=== PATIENT | female | born 1990 | race Two or more races ===

== ENCOUNTER 2016-12-28 09:49 | Emergency (ER) | payer MEDICAID ==
[~2016-12-28] VITALS: Ht 177.8 cm; Wt 117.9 kg
[2016-12-28 11:33] VITALS: BP 112/62
== END 2016-12-28 11:49 | disposition home or self-care (01) ==
LOC: ER 09:49
DX: S16.1XXA Strain of muscle, fascia and tendon at neck level, initial encounter (principal); J32.1 Chronic frontal sinusitis; F17.210 Nicotine dependence, cigarettes, uncomplicated; J45.909 Unspecified asthma, uncomplicated; Z88.2 Allergy status to sulfonamides; X58.XXXA Exposure to other specified factors, initial encounter; Y93.89 Activity, other specified; Y99.8 Other external cause status; Y92.89 Other specified places as the place of occurrence of the external cause

== ENCOUNTER 2025-04-22 06:20 | Inpatient (IN) | payer MEDICAID ==
[2025-04-21 10:31] LABS: Hematocrit 39.5 % (36.0-46.0); Hemoglobin 13.1 g/dL (12.2-16.2); Mean Corpuscular Hemoglobin 28.1 pg (28.0-32.0); Mean Corpuscular Volume 84.8 fL (80.0-100.0); Nucleated Red Blood Cells % 0.0 %
[2025-04-21 10:48] LABS: Urine Protein, UAD Negative (Negative)
[2025-04-21 10:49] LABS: INR 0.97 (0.9-1.15); Partial Thromboplastin Time 26.3 SEC (24.5-34.5); Prothrombin Time 10.3 sec (9.3-11.8)
[2025-04-21 10:57] LABS: Alanine Aminotransferase 23 U/L (7-40); Alkaline Phosphatase 61 U/L (46-116); Anion Gap 7 (5-15); BUN/Creatinine Ratio 14.1 (10.0-20.0); Blood Urea Nitrogen 11 mg/dL (9-23); Calcium 9.9 mg/dL (8.7-10.4); Carbon Dioxide 25 mmol/L (20-31); Glucose 92 mg/dL (74-106); Potassium 4.5 mmol/L (3.5-5.1); Sodium 142 mmol/L (136-145)
[2025-04-21 10:58] LABS: Chloride 110 mmol/L (98-107); Total Protein 7.0 g/dL (5.7-8.2)
[2025-04-21 10:59] LABS: Albumin 4.4 g/dL (3.2-4.8)
[2025-04-21 11:02] LABS: Bilirubin, Total 0.3 mg/dL (0.2-1.0)
[~2025-04-22] VITALS: Ht 177.8 cm; Wt 139.8 kg
[2025-04-22] VITALS (8 sets, daily range): BP systolic 61–123; BP diastolic 61–65; PULSE 69–110; RESP 12–20; TEMP 98.6–99.1; O2SAT 89–100
[~2025-04-22 06:20] MED LIST: ALBUAER3 IN; CYCL-837 PO; FLUT250M2 IN; LORA-622 PO; PSEU-295 PO
[2025-04-22] MEDS ORDERED: fentaNYL CITRATE 100 MCG/2 ML VL ONE ×2 (06:45→08:40)
[2025-04-22] MEDS ORDERED: SODIUM CHLORIDE LOCK 10 ML ONE (06:45)
[2025-04-22] MEDS ORDERED: MIDAZOLAM HCL 2MG/2ML 2ml VIAL (1mg/ml) ONE (06:45)
[2025-04-22] MEDS ORDERED: LIDOCAINE 1% INJ PF 5ML AMP ONE (06:45)
[2025-04-22] MEDS ORDERED: HYDROmorphone HCL 2 MG/ML VL/or syr ONE (06:45)
[2025-04-22] MEDS ORDERED: ONDANSETRON HCL 4 MG/2 ML VIAL ONE (06:45)
[2025-04-22] MEDS ORDERED: PROPOFOL 10 MG/ML 20 ML IV ONE ×2 (06:45→08:40)
[2025-04-22] MEDS ORDERED: KETAMINE 50mg/ML 10ml Vial 10 ML ONE (06:45)
[2025-04-22] MEDS ORDERED: LIDOCAINE HCL 2% TOP JELLY 5ML TOP ONE (06:45)
[2025-04-22] MEDS ORDERED: HYDROmorphone HCL 2 MG/ML VL/or syr IV PRN (07:00)
[2025-04-22] MEDS ORDERED: MORPHINE SULFATE INJ 2 MG/ml SYRG IV PRN ×2 (07:00→14:00)
[2025-04-22] MEDS ORDERED: MORPHINE SULFATE 4 MG/ML SYR/VIAL IV PRN (07:00)
[2025-04-22] MEDS: LIDOCAINE W/ EPINEPHRINE 1% 20ML VIAL ONE (08:10)
[2025-04-22] MEDS: ceFAZolin 1GM VL ONE (08:10)
[2025-04-22] MEDS: CONJ ESTROGENS 0.625MG/GM VAG CRM 30GM PV ONE (09:19)
--- NOTE | 2025-04-22 09:27 | DVHDS2 ---
New Physician D'charge PN Admitting Diagnosis Admitting Diagnosis Stress urinary incontinence Discharge Diagnosis Same Urethral erosion of mesh Operations or Procedures Sling operation Removal of sling mesh Cystoscopy Repair of iatrogenic urethrotomy Bharati plication Reason(s) For Hospitalization Surgery Treatment Plan Discharge Complications After placement of the urethral sling, cystoscopy confirmed a erosion of the sling mesh into the urethra at 5 o'clock position. Iatrogenic urethrotomy was identified and repaired with 2-0 Vicryl suture. The sling mesh was removed. Bharati plication was performed for supportive measures. 16 English catheter was placed and bladder was filled with normal saline to check for leakage and there was none. Condition of Discharge Fair Disposition Home Discharge Instructions Diet: Regular Activity: Light activity Activity comment: Alvarado catheter x2 weeks Medications: Given Follow Up Care Follow Up/Referral: Vaginal packing removal on postop day 1. Catheter removal in two weeks with cystoscopy Discharge Statement: "Patient was advised to return to the ER or call 911 if any headaches, dizziness, shortness of breath, chest pain, abdominal pain, bleeding, fevers, or worsening of medical condition. Patient was counseled about treatment plan, medications, possible side effects, patientverbalized understanding. All questions were answered to the best of my ability. This discharge took greater then 30 minutes in planning, reviewing documentation, counseling the patient, and discussing with other team members." SIMONE REYES MD Apr 22, 2025 09:27
[2025-04-22] MEDS: METOCLOPRAMIDE HCL 5MG/ml INJ 2ml VIAL IV ONE (10:54)
[2025-04-22] MEDS: KETOROLAC TROMETH 30 MG/ML 1ML VIAL IV ONE (10:54)
--- NOTE | 2025-04-22 11:06 | DVHNC2 ---
Procedure - OPERATIVE REPORT Pre-op. Diagnosis: Stress urinary incontinence (625.6) Post-op. Diagnosis: Same as pre-op diagnosis Operation: Sling operation for incontinence (55480) Cystoscopy (47688) Removal of sling mesh and repair of iatrogenic left urethrotomy Bharati Plication (73818) Anesthesia: General Dr. Lindsey Indications: Patient presents with CARMENCITA when coughing or sneezing x many years. NVD x 1. INFORMED CONSENT: Indications, risks, complications, alternatives and benefits of Transvaginal Sling operation are discussed with patient. All questions were encouraged and answered. She consented to proceed. Patient is aware of specific risks/complications including but not limited to infection, wound dehiscence, mesh erosion, urinary retention and persistent urinary incontinence. She is aware of alternatives to this procedure, including conservative management, other forms of urethropexy and pubovaginal sling. Among the various treatment options that were discussed she elected to proceed with transvaginal repair. She was fully notified that given the circumstances of her vaginal tissues, I may be required to use mesh material. I would specifically use polypropylene mesh if necessary in order to help correct her situation. There is a lot of litigation surrounding this topic. FDA (as a protective federal agency) has not pulled these materials. There is certainly litigation, very few of which have legitimacy and of those; usually extenuating circumstances are involved (such as poor patient tissue characteristics) other than just the mesh products. The patient is aware that the use of mesh could result in recurrence, erosion, pelvic pain, but it is also potentially necessary for correction of her anatomical defects. Given the above issues, informed consent was obtained. Patient has symptomatic cystocele and stress urinary incontinence. She elected to proceed. Details of Procedure: The patient was brought to the operating room and placed upon the table. After induction of anesthesia she was placed in the lithotomy position. Her genitalia and perineal regions were shaved, prepped, and draped in sans surgical fashion. A Alvarado catheter was inserted. A Kenneth ring retractor was placed. Blue hooks were used to open up the vaginal canal. We used 1% lidocaine with epinephrine in order to hydro-dissect the mucosal layer away from the above structures which include urethra and the bladder. Next, I located and made a vertical midurethral vaginal incision of approximately 3.0 cm and bluntly dissected bilaterally up to the interior portion of the inferior pubic ramus. The notch along the internal edge of ischiopubic ramus where the adductor longus tendon and the inferior pubic ramus converged was palpated. Integrated self-fixating tips are placed using the Pyrolia needle delivery system at the posterior surface of the ischiopubic ramus to align the sling appropriately in the midurethral level. Sling mesh is secured tension free with 2-0 Vicryl sutures. Needle device is removed, vaginal incision is closed with 2-0 Vicryl suture. Cystoscopy with 70 degree lens was now performed and erosion of the mesh at 5 O'Clock position on proximal urethra was noted, unfortunately. The correct management of this recognized intraoperative compliaction at this point would be to remove the sling mesh and repair the iatrogenic urethrotomy. The vaginal incision was reopened by removing the closing sutures and reestablishing exposure to the surgical site. The sling mesh was identified and removed using the right angle forceps. With a Alvarado catheter in place the urethral injury site was identified. The edges were closed with 2-0 chromic suture in interrupted manner. Next a Bharati plication was performed over the closed urethrotomy site. 2-0 Vicryl sutures on a UR6 needles were used to obtian periurethral tissues and pubocervical fascia from laterally to midline. Additional layer of supportive tissue were sutured beneath the urethra. cystoscopy was performed again to conf irmed the closure of the urethrotomy site. Vaginal packing is placed with antibiotic and Estrace cream. Alvarado catheter remains in place. All instrument counts and sponge counts were correct at the end of the operation. Specimens: None Complications: Iatrogenic injury resulting in erosion of the sling material at 5 o'clock position near the proximal urethral/ bladder neck noted intraoperatively by cystoscopy. Appropriate management was carried out by removing the eroded sling material, closing the urethrotomy and performing a Bharati plication for additional support to the bladder neck area. The Alvarado catheter will need to be left in place x 2 weeks Findings: EBL: 100 ml SIMONE REYES MD Apr 22, 2025 11:06
[2025-04-22] MEDS: HYDROmorphone HCL 2 MG/ML VL/or syr IV PRN (13:02)
[2025-04-22] MEDS ORDERED: NITROGLYCERIN 0.4 MG SL TAB SL PRN (14:00)
--- NOTE | 2025-04-22 16:37 | DVHHP2 ---
Review of Systems Allergies: Coded Allergies: Sulfamethoxazole w/Trimethoprim (Verified Allergy, Mild, RASH, 01/19/14) Medications Current Medications Medications Dose Ordered Sig/Sravanthi Route Start Time Stop Time Status Last Admin Dose Admin Nitroglycerin 0.4 mg Q5MINP PRN SL 04/22/25 14:00 Morphine Sulfate 2 mg Q30M PRN IV 04/22/25 14:00 Sodium Chloride 1,000 ml @ 150 mls/hr Q6H40M IV 04/22/25 14:15 Exam Vital Signs Vital Signs Date Time Temp Pulse Resp B/P (MAP) Pulse Ox O2 Delivery O2 Flow Rate FiO2 04/22/25 15:58 89 17 93/61 (72) 95 04/22/25 09:38 Room Air 0 97 04/22/25 09:28 97.0 97.0 Labs/Xrays Labs Test 04/21/25 10:15 Range/Units White Blood Count 8.4 4.4-10.8 10^3/uL Red Blood Count 4.66 4.0-5.20 10^6/uL Hemoglobin 13.1 12.2-16.2 g/dL Hematocrit 39.5 36.0-46.0 % Mean Corpuscular Volume 84.8 80.0-100.0 fL Mean Corpuscular Hemoglobin 28.1 28.0-32.0 pg Mean Corpuscular Hemoglobin Concent 33.2 32.0-36.0 g/dL Red Cell Distribution Width 15.7 H 11.8-14.3 % Platelet Count 318 140-450 10^3/uL Mean Platelet Volume 8.4 6.9-10.8 fL Neutrophils (%) (Auto) 63.8 37.0-80.0 % Lymphocytes (%) (Auto) 25.4 10.0-50.0 % Monocytes (%) (Auto) 4.4 0.0-12.0 % Eosinophils (%) (Auto) 5.9 0.0-7.0 % Basophils (%) (Auto) 0.5 0.0-2.0 % Neutrophils # (Auto) 5.4 1.6-8.6 10 ^3/uL Lymphocytes # (Auto) 2.1 0.4-5.4 10 ^3/uL Monocytes # (Auto) 0.4 0-1.3 10 ^3/uL Eosinophils # (Auto) 0.5 0-0.8 10 ^3/uL Basophils # (Auto) 0 0-0.2 10 ^3/uL Nucleated Red Blood Cells 0.0 % Prothrombin Time 10.3 9.3-11.8 sec Prothrombin Time INR 0.97 0.9-1.15 Activated Partial Thromboplast Time 26.3 24.5-34.5 SEC Urine Color Light-yellow Yellow Urine Clarity Clear Clear Urine pH 5.5 5.0-9.0 Urine Specific [place] 1.013 1.001-1.035 Urine Protein Negative Negative Urine Ketones Negative Negative Urine Blood Negative Negative /uL Urine Nitrite Negative Negative Urine Bilirubin Negative Negative Urine Urobilinogen Normal Negative mg/dL Urine Leukocyte Esterase Negative Negative /uL Urine RBC <1 0 - 4 /hpf Urine Microscopic WBC < 1 0-5 /HPF Urine Squamous Epithelial Cells Few <5 /hpf Urine Bacteria None seen None Seen /hpf Urine Glucose Normal Normal mg/dL Sodium Level 142 136-145 mmol/L Potassium Level 4.5 3.5-5.1 mmol/L Chloride Level 110 H 98-107 mmol/L Carbon Dioxide Level 25 20-31 mmol/L Anion Gap 7 5-15 Blood Urea Nitrogen 11 9-23 mg/dL Creatinine 0.78 0.550-1.02 mg/dL Glomerular Filtration Rate Calc 100 >90 mL/min BUN/Creatinine Ratio 14.1 10.0-20.0 Serum Glucose 92 74-106 mg/dL Calcium Level 9.9 8.7-10.4 mg/dL Total Bilirubin 0.3 0.2-1.0 mg/dL Aspartate Amino Transferase (AST) 18 13-40 U/L Alanine Aminotransferase (ALT) 23 7-40 U/L Alkaline Phosphatase 61 46-116 U/L Total Protein 7.0 5.7-8.2 g/dL Albumin 4.4 3.2-4.8 g/dL Beta HCG, Quantitative 0.7 L 1.5-4.2 mIU/mL Microbiology Date/Time Source Procedure Growth Status 04/21/25 10:15 Voided Urine Urine Culture - Preliminary Resulted Assessment/Plan Assessment/Plan SEE DICTATED NOTE Plan discussed with: Patient Date of Service: Apr 22, 2025 Billing Provider: LOREN GILL MD Common Visit Codes: [id number] INP/OBS CARE (HIGH) LOREN GILL MD Apr 22, 2025 16:37
--- NOTE | 2025-04-22 16:40 | CODING ---
Date of Service: Apr 22, 2025 Billing Provider: LOREN GILL MD Common Visit Codes: [id number] INP/OBS CARE (HIGH) Secondary Visit Codes: [id number] CHNG SMOKING >10MIN LOREN GILL MD Apr 22, 2025 16:40
[2025-04-22] MEDS ORDERED: ONDANSETRON HCL 4 MG/2 ML VIAL IV PRN (16:45)
[2025-04-22] MEDS ORDERED: ACETAMINOPHEN 325 MG TAB PO PRN (16:45)
--- NOTE | 2025-04-22 17:27 | DVHHP ---
HISTORY OF PRESENT ILLNESS: The patient is a 35-year-old lady who was admitted after she underwent a pelvic sling operation. The patient at this time complains of minimal pelvic discomfort. No chest pain, no shortness of breath, no nausea or vomiting. Review of rest systems are otherwise currently negative. PAST MEDICAL HISTORY: Significant for asthma. MEDICATIONS: She takes albuterol and maintenance inhaler. ALLERGIES: SULFA. SOCIAL HISTORY: Smokes about half a pack a day. Denies alcohol abuse. FAMILY HISTORY: Negative. PHYSICAL EXAMINATION: GENERAL: The patient is awake and alert. VITAL SIGNS: Temperature of 97, pulse of 71 per minute, blood pressure 112/58. SHEENT: Unremarkable. NECK: No JVD. No pedal edema. LUNGS: Equal bilaterally. No added sounds. CARDIOVASCULAR SYSTEM: S1 and S2 is regular. No murmurs. ABDOMEN: Soft. There is no organomegaly. NEUROLOGIC: Nonfocal. MUSCULOSKELETAL: Normal. ASSESSMENT AND PLAN: * Asthma for which she will be placed on as needed albuterol. * Obesity. * Tobacco abuse for which she was advised to quit and nicotine replacement was suggested- time spent was 11 mins * Status post vaginal sling surgery. The patient will be followed up by Dr. Griffith and placed on pain medications and IV antibiotics. MD ZEENAT Andre/ANETTE TID: [id number] RECEIPT: [id number] MTDD
[2025-04-22] MEDS: SUCCINYLCHOLINE CHLORIDE 20 MG/ML 10ML VIAL IV ONE (17:57)
[2025-04-22] MEDS: ROCURONIUM 10MG/ML 10ML VIAL IV ONE (17:57)
[2025-04-22] MEDS: BACITRACIN TOP OINT 1 UD PKG TOP ONE (17:58)
[2025-04-22] MEDS: NEOMYCIN-BACITRACIN-POLYM 15GM TOP OINT TOP ONE (17:58)
[2025-04-22] MEDS: CIPROFLOXACIN 400MG/200ML 200 ML IV ONE (17:58)
[2025-04-22] MEDS: ONDANSETRON HCL 4 MG/2 ML VIAL IM ONE (17:59)
[2025-04-22] MEDS: PROCHLORPERAZINE EDISYLATE 5 MG/ML 2ML VIAL IV ONE (17:59)
[2025-04-22] MEDS: HYDROmorphone HCL 2 MG/ML VL/or syr ONE (18:00)
[2025-04-22] MEDS: HYDROcodone-ACET 5/325MG TAB PO PRN (18:44)
[2025-04-22] MEDS: ALBUTEROL SULF 2.5 MG/0.5ML(0.5%) NEB SOLN NEB PRN (20:46)
[2025-04-22] MEDS: SODIUM CHLORIDE 0.9% 1,000 ML IV SCH (20:55)
[2025-04-23] VITALS (12 sets, daily range): BP systolic 95–142; BP diastolic 49–86; PULSE 63–82; RESP 14–18; TEMP 97.6–98.4; O2SAT 96–99
[2025-04-23] MEDS: MORPHINE SULFATE INJ 2 MG/ml SYRG IV PRN (02:05)
[2025-04-23 06:30] LABS: Hematocrit 33.2 % (36.0-46.0); Hemoglobin 10.8 g/dL (12.2-16.2); Mean Corpuscular Hemoglobin 27.7 pg (28.0-32.0); Mean Corpuscular Volume 85.2 fL (80.0-100.0); Nucleated Red Blood Cells % 0.0 %
[2025-04-23 06:42] LABS: Anion Gap 10 (5-15); Potassium 3.9 mmol/L (3.5-5.1); Sodium 142 mmol/L (136-145)
[2025-04-23 06:48] LABS: BUN/Creatinine Ratio 15.5 (10.0-20.0); Blood Urea Nitrogen 11 mg/dL (9-23)
[2025-04-23 06:54] LABS: Calcium 8.0 mg/dL (8.7-10.4); Carbon Dioxide 20 mmol/L (20-31); Chloride 112 mmol/L (98-107); Glucose 133 mg/dL (74-106)
--- NOTE | 2025-04-23 10:12 | DVHPN2 ---
Progress Note - Dictate Date Seen: Apr 23, 2025 Medical Necessity Reason Pt with a Central, PICC or Fol: Yes The following are medically ne: Alvarado Catheter Medical Necessity Reason POD#1 s/p Bharati plication and repair of urethral erosion vital signs Vital Sign Date Time Temp Pulse Resp B/P (MAP) Pulse Ox O2 Delivery O2 Flow Rate FiO2 04/23/25 09:00 98.0 76 14 126/83 (97) 98 98.0 04/22/25 20:46 Room Air* 0 21 Total Intake and Output 04/22/25 04/22/25 04/23/25 15:00 23:00 07:00 Intake Total 200 ml 600 ml Output Total 1300 ml 550 ml Balance -1100 ml 50 ml medications Current Medications Medications Dose Ordered Sig/Sravanthi Route Start Time Stop Time Status Last Admin Dose Admin Nitroglycerin 0.4 mg Q5MINP PRN SL 04/22/25 14:00 Morphine Sulfate 2 mg Q30M PRN IV 04/22/25 14:00 Sodium Chloride 1,000 ml @ 150 mls/hr Q6H40M IV 04/22/25 14:15 04/23/25 03:50 150 MLS/HR Morphine Sulfate 1 mg Q4HP PRN IV 04/22/25 16:45 04/23/25 08:45 1 MG Acetaminophen/ Hydrocodone Bitart 1 tab Q6HPRN PRN PO 04/22/25 16:45 04/22/25 21:22 1 TAB Acetaminophen 650 mg Q6HP PRN PO 04/22/25 16:45 Ondansetron HCl 4 mg Q6HPRN PRN IV 04/22/25 16:45 Albuterol 2.5 mg Q4HPRN PRN NEB 04/22/25 16:45 04/22/25 20:46 2.5 MG laboratory and microbiology Laboratory Tests 04/23/25 05:37 Test 04/23/25 05:37 Range/Units Serum Glucose 133 H 74-106 mg/dL Problem List Vaginal packing to be removed. Alvarado catheter to remain x 2 weeks Admitted for gross hematuria Assessment/Plan Will discharge when urine clear and stable Plan discussed with: Patient, Other SIMONE REYES MD Apr 23, 2025 10:12
--- NOTE | 2025-04-23 11:47 | DVHPN2 ---
Progress Note Date Seen: Apr 23, 2025 Medical Necessity Reason Pt with a Central, PICC or Fol: Yes The following are medically ne: Strange Catheter Reason for strange catheter: Miguel Angel. Abd Surgery Subjective Patient reports: No new complaints Review of Systems: HEENT:Normal, CVS:Normal, RESPIRATORY:Normal, GI:Normal, :Normal, MSK:Normal, NEURO:Normal Objective vital signs Vital Sign Date Time Temp Pulse Resp B/P (MAP) Pulse Ox O2 Delivery O2 Flow Rate FiO2 04/23/25 09:43 99 Room Air 04/23/25 09:43 0 21 04/23/25 09:00 98.0 76 14 126/83 (97) 98.0 Total Intake and Output 04/22/25 04/22/25 04/23/25 15:00 23:00 07:00 Intake Total 200 ml 600 ml Output Total 1300 ml 550 ml Balance -1100 ml 50 ml medications Current Medications Medications Dose Ordered Sig/Sravanthi Route Start Time Stop Time Status Last Admin Dose Admin Nitroglycerin 0.4 mg Q5MINP PRN SL 04/22/25 14:00 Morphine Sulfate 2 mg Q30M PRN IV 04/22/25 14:00 Sodium Chloride 1,000 ml @ 150 mls/hr Q6H40M IV 04/22/25 14:15 04/23/25 10:35 150 MLS/HR Morphine Sulfate 1 mg Q4HP PRN IV 04/22/25 16:45 04/23/25 08:45 1 MG Acetaminophen/ Hydrocodone Bitart 1 tab Q6HPRN PRN PO 04/22/25 16:45 04/23/25 10:35 1 TAB Acetaminophen 650 mg Q6HP PRN PO 04/22/25 16:45 Ondansetron HCl 4 mg Q6HPRN PRN IV 04/22/25 16:45 Albuterol 2.5 mg Q4HPRN PRN NEB 04/22/25 16:45 04/22/25 20:46 2.5 MG Examination: GENERAL:Normal, HEENT:Normal, NECK:Normal, LUNGS:Normal, CVS:Normal, ABDOMEN:Normal, MSK:Normal, SKIN:Normal, NEURO:Normal, :Normal laboratory and microbiology Laboratory Tests 04/23/25 05:37 Test 04/23/25 05:37 Range/Units Serum Glucose 133 H 74-106 mg/dL Microbiology Date/Time Source Procedure Growth Status 04/21/25 10:15 Voided Urine Urine Culture - Final Complete Problem List/Assessment/Plan Problem List/Assessment/Plan * Asthma for which she will be placed on as needed albuterol. * Obesity. * Tobacco abuse for which she was advised to quit and nicotine replacement was suggested- time spent was 11 mins * Status post vaginal sling surgery. The patient will be followed up by Dr. Griffith and placed on pain medications and IV antibiotics. Plan discussed with: Patient My Orders My Orders Orders - LOREN GILL MD Procedure Category Date Status Time Morphine Sulfate PHA 04/22/25 In Process Injection 16:45 Hydrocodone-Acet PHA 04/22/25 In Process 5/325mg Tab ([place] 16:45 Acetaminophen Tablet PHA 04/22/25 In Process (Tylenol Tablet) 16:45 Ondansetron Hcl PHA 04/22/25 In Process (Zofran) 16:45 Albuterol Medneb PHA 04/22/25 In Process (Ventolin Medneb) 16:45 Throat Lozenges PHA 04/23/25 Verified (Cepastat Lozenges) 11:45 Levofloxacin Levaquin PHA 04/24/25 Verified 10:00 Levofloxacin Levaquin PHA 04/23/25 Verified 11:45 Basic Metabolic Panel LAB 04/24/25 Verified 06:00 Complete Blood Count LAB 04/24/25 Verified 06:00 Date of Service: Apr 23, 2025 Billing Provider: LOREN GILL MD Common Visit Codes: [id number] INP/OBS CARE(HIGH) LOREN GILL MD Apr 23, 2025 11:47
[2025-04-23] MEDS: THROAT LOZENGES(CEPASTAT) MT PRN (12:52)
[2025-04-24] VITALS (8 sets, daily range): BP systolic 98–127; BP diastolic 55–79; PULSE 66–81; RESP 14–16; TEMP 97.8–98.3; O2SAT 98–100
[2025-04-24 06:54] LABS: Hematocrit 32.2 % (36.0-46.0); Hemoglobin 10.7 g/dL (12.2-16.2); Mean Corpuscular Hemoglobin 28.4 pg (28.0-32.0); Mean Corpuscular Volume 85.2 fL (80.0-100.0); Nucleated Red Blood Cells % 0.0 %
[2025-04-24 07:00] LABS: Anion Gap 5 (5-15); Carbon Dioxide 25 mmol/L (20-31); Potassium 3.9 mmol/L (3.5-5.1); Sodium 142 mmol/L (136-145)
[2025-04-24 07:01] LABS: Calcium 8.8 mg/dL (8.7-10.4)
[2025-04-24 07:05] LABS: Glucose 85 mg/dL (74-106)
[2025-04-24 07:06] LABS: BUN/Creatinine Ratio 14.5 (10.0-20.0); Blood Urea Nitrogen 11 mg/dL (9-23)
[2025-04-24 07:08] LABS: Chloride 112 mmol/L (98-107)
--- NOTE | 2025-04-24 13:32 | DVHDS2 ---
Discharge Summary Date of Admission Apr 22, 2025 at 14:11 Date of Discharge: Apr 24, 2025 Labs/Diagnostic Data: Laboratory Results Test 04/24/25 06:12 04/21/25 10:15 White Blood Count 10.9 10^3/uL (4.4-10.8) Red Blood Count 3.77 10^6/uL (4.0-5.20) Hemoglobin 10.7 g/dL (12.2-16.2) Hematocrit 32.2 % (36.0-46.0) Mean Corpuscular Volume 85.2 fL (80.0-100.0) Mean Corpuscular Hemoglobin 28.4 pg (28.0-32.0) Mean Corpuscular Hemoglobin Concent 33.3 g/dL (32.0-36.0) Red Cell Distribution Width 15.7 % (11.8-14.3) Platelet Count 246 10^3/uL (140-450) Mean Platelet Volume 8.6 fL (6.9-10.8) Neutrophils (%) (Auto) 70.7 % (37.0-80.0) Lymphocytes (%) (Auto) 24.2 % (10.0-50.0) Monocytes (%) (Auto) 4.7 % (0.0-12.0) Eosinophils (%) (Auto) 0.3 % (0.0-7.0) Basophils (%) (Auto) 0.1 % (0.0-2.0) Neutrophils # (Auto) 7.7 10 ^3/uL (1.6-8.6) Lymphocytes # (Auto) 2.6 10 ^3/uL (0.4-5.4) Monocytes # (Auto) 0.5 10 ^3/uL (0-1.3) Eosinophils # (Auto) 0 10 ^3/uL (0-0.8) Basophils # (Auto) 0 10 ^3/uL (0-0.2) Nucleated Red Blood Cells 0.0 % Sodium Level 142 mmol/L (136-145) Potassium Level 3.9 mmol/L (3.5-5.1) Chloride Level 112 mmol/L (98-107) Carbon Dioxide Level 25 mmol/L (20-31) Anion Gap 5 (5-15) Blood Urea Nitrogen 11 mg/dL (9-23) Creatinine 0.76 mg/dL (0.550-1.02) Glomerular Filtration Rate Calc 103 mL/min (>90) BUN/Creatinine Ratio 14.5 (10.0-20.0) Serum Glucose 85 mg/dL (74-106) Calcium Level 8.8 mg/dL (8.7-10.4) Prothrombin Time 10.3 sec (9.3-11.8) Prothrombin Time INR 0.97 (0.9-1.15) Activated Partial Thromboplast Time 26.3 SEC (24.5-34.5) Urine Color Light-yellow (Yellow) Urine Clarity Clear (Clear) Urine pH 5.5 (5.0-9.0) Urine Specific [place] 1.013 (1.001-1.035) Urine Protein Negative (Negative) Urine Ketones Negative (Negative) Urine Blood Negative /uL (Negative) Urine Nitrite Negative (Negative) Urine Bilirubin Negative (Negative) Urine Urobilinogen Normal mg/dL (Negative) Urine Leukocyte Esterase Negative /uL (Negative) Urine RBC <1 /hpf (0 - 4) Urine Microscopic WBC < 1 /HPF (0-5) Urine Squamous Epithelial Cells Few /hpf (<5) Urine Bacteria None seen /hpf (None Seen) Urine Glucose Normal mg/dL (Normal) Total Bilirubin 0.3 mg/dL (0.2-1.0) Aspartate Amino Transferase (AST) 18 U/L (13-40) Alanine Aminotransferase (ALT) 23 U/L (7-40) Alkaline Phosphatase 61 U/L (46-116) Total Protein 7.0 g/dL (5.7-8.2) Albumin 4.4 g/dL (3.2-4.8) Beta HCG, Quantitative 0.7 mIU/mL (1.5-4.2) Other Laboratory Tests 04/24/25 06:12 Brief Hx & Hospital Course: see dictated note Condition at Discharge: Fair Final Diagnosis/Problems List pelvic surgery Discharge Disposition: Home Discharge Instruct/Medications Diet: Regular Activity: Light activity Activity comment: Alvarado catheter x2 weeks Follow Up/Referral: Vaginal packing removal on postop day 1.Catheter removal in two weeks with cystoscopy Medications: Given Scheduled Albuterol Sulfate (Ventolin Mdi), 90 MCG IN PRN, (Reported) Miscellaneous Medications Cyclobenzaprine Hcl (Cyclobenzaprine Hcl), Unknown Dose PO, (Reported) Fluticasone-Salmeterol (Advair Diskus 250/50), 1 PUFF IN, (Reported) Loratadine (Claritin), 10 MG PO, (Reported) Pseudoephedrine Hcl (Sudogest), Unknown Dose PO, (Reported) Discharge Statement: "Patient was advised to return to the ER or call 911 if any headaches, dizziness, shortness of breath, chest pain, abdominal pain, bleeding, fevers, or worsening of medical condition. Patient was counseled about treatment plan, medications, possible side effects, patientverbalized understanding. All questions were answered to the best of my ability. This discharge took greater then 30 minutes in planning, reviewing documentation, counseling the patient, and discussing with other team members." ASSESSMENT ASSESSMENT Assessment pelvic surgery Date of Service: Apr 24, 2025 Billing Provider: LOREN GILL MD Common Visit Codes: [id number] DISCH DAY >30min LOREN GILL MD Apr 24, 2025 13:32
--- NOTE | 2025-04-24 14:28 | DVHDS ---
DATE OF DISCHARGE: 04/24/2025 HISTORY OF PRESENT ILLNESS: The patient is a 35-year-old lady who was admitted after she underwent a pelvic sling surgery. The patient has history of asthma. HOSPITAL COURSE: The patient was seen in Urology consult by Dr. Griffith. The patient had a Alvarado catheter in place. The patient is now doing well and her hematuria has resolved. She will be discharged home to be on medications as per Dr. Griffith. She will follow up with him in 2 weeks. FINAL DIAGNOSES: Therefore, * Asthma. * Obesity. * Tobacco abuse. * Status post vaginal sling surgery. Time spent in discharge planning and review of plan with the patient and nursing was 36 minutes. MD ZEENAT Andre/SHYANN TID: [id number] RECEIPT: [id number]
== END 2025-04-24 15:13 | disposition home or self-care (01) | DRG 445 ==
LOC: SUR 06:20 → OVERFLOW 14:11 → WEST WING 16:00
PROVIDERS: ADMIT Internal Medicine; ATTEND Internal Medicine
PROC: 0WP Anatomical Regions, General, Removal (ICD-10-PCS; 2025-04-22)
PROC: 0TQD8ZZ Repair Urethra, Via Natural or Artificial Opening Endoscopic (ICD-10-PCS; 2025-04-22)
PROC: 0TSD0ZZ Reposition Urethra, Open Approach (ICD-10-PCS; principal; 2025-04-22 07:47)
DX: N39.3 Stress incontinence (female) (male) (principal); E66.9 Obesity, unspecified; J45.909 Unspecified asthma, uncomplicated; Z68.38 Body mass index [BMI] 38.0-38.9, adult; N36.8 Other specified disorders of urethra; F17.210 Nicotine dependence, cigarettes, uncomplicated; Z88.2 Allergy status to sulfonamides; Z88.3 Allergy status to other anti-infective agents
CPT/HCPCS: 36415; 80048; 80053; 81001; 84702; 85025; 85610; 85730; 87086; 94640; C1771; G0378; J0330; J0690; J1885; J1956; J2250; J2405; J2704